=== PATIENT | male | born 1995 | race Caucasian/White ===

== ENCOUNTER 2025-07-28 11:07 | Emergency (ER) | payer OTHER, SELFPAY ==
[2025-07-28 11:30] VITALS: BP 140/78; PULSE 65; RESP 18; TEMP 36.2; O2SAT 99; BMI 28.2
--- NOTE | 2025-07-28 11:35 | ED_ITS ---
HPI - General Adult General Chief complaint: Skin/Abscess/Foreign Body Stated complaint: Rash Time Seen by Provider: 07/28/25 14:20 Source: patient Mode of arrival: ambulatory Limitations: no limitations History of Present Illness ED Provider: Patti Lamb PA-C HPI narrative: Patient is a Patient is a 30 year old male presenting to the emergency department with a rash. Patient states he was in [facility] on a trip and arrived back on 07/14/2025 when he developed a rash a few days after that has not improved despite him using benadryl. Patient states that the rash is not itchy at all. Patient states that he has not tried any new soaps or detergents. Patient denies any other symptoms including fever, chills, body aches, etc. Patient states that he is sexually active but has not been since returning from [facility]. Patient states that he is up to date on all of his vaccinations. Patient denies any other complaints at this time. Relieving factors: none Exacerbating factors: none Associated symptoms: rash Treatments prior to arrival: other (Benadryl OTC - no improvement) Related Data Previous Rx's ?Medication ?Instructions ?Recorded prednisone 20 mg tablet See Rx Instructions .Route 1 09/28/24 .COMPLEX 9 days #18 tabs Allergies Allergy/AdvReac Type Severity Reaction Status Date / Time No Known Allergies Allergy Verified 07/28/25 11:34 Review of Systems 2 Constitutional: Constitutional: Reports as per HPI Eyes: Eyes: Reports as per HPI ENT: Reports as per HPI Cardiovascular: Cardiovascular: Reports as per HPI Respiratory: Respiratory: Reports as per HPI Gastrointestinal: Gastrointestinal: Reports as per HPI Genitourinary: Genitourinary: Reports as per HPI Musculoskeletal: Musculoskeletal: Reports as per HPI Integumentary/Breasts: Skin/Breast: Reports as per HPI Neurologic: Reports as per HPI Psychiatric: Psychiatric: Reports as per HPI Endocrine: Endocrine: Reports as per HPI Hematologic/Lymphatic: Hematologic/Lymphatic: Reports as per HPI Allergic/Immunologic: Allergic/Immunologic: Reports as per HPI [facility] Past Medical History Attestation statement: The following information was validated with the patient. Source: old records reviewed and nursing notes reviewed Social History Social History Advance Directives: No Advance Directives Information Provided: Yes Do you have a plan to hurt others: No Plan Physical Exam ED Vital Signs: Vital Signs - 24 hr 07/28/25 11:30 07/28/25 14:31 Temperature 97.2 F 97.2 F Pulse Rate 65 65 Respiratory Rate 18 18 Blood Pressure 140/78 H 140/78 H Pulse Oximetry 99 99 Oxygen Delivery Method Room Air Room Air BMI result Body Mass Index 28.2 Const General: cooperative, alert and awake Orientation/consciousness: patient oriented x3 HENMT Head: Yes normal to inspection and Yes atraumatic Ears: hearing grossly normal bilaterally and external ears normal General nose exam: Normal external nose present, no nasal discharge noted and no epistaxis Face and sinus: Yes normal facial exam, No abrasion and No laceration Mouth: Normal oral and palatal mucosa present, no drooling and no muffled voice Eyes General: appearance normal, both eyes and all related structures Periorbital: periorbital findings normal Eyelids: Yes eyelids normal Conjunctivae: conjunctivae normal Pupils: Equal, round and reactive pupils present EOM: EOMs intact bilaterally Resp Effort & Inspection: normal respiratory effort and able to speak in complete sentences Skin Other: Neuro General: patient oriented x3, moves all extremities and CN's II-XI intact bilaterally Cranial nerves: Yes Equal, round and reactive pupils present Cognition (Neuro): normal cognition Extrem General: Yes full ROM Psych Appearance: grossly normal Mental Status: mental status grossly normal Attitude: cooperative Course Course Course Narrative: Rapid medical examination performed in triage by Patti Lamb PA-C: Patient is a 30 year old male presenting to the emergency department with a rash. Patient states he was in [facility] on a trip and arrived back on 07/14/2025 when he developed a rash a few days after that has not improved despite him using benadryl. Detailed physical exam and review of systems are deferred to the log hauler.Labs ordered. Patient placed back in the waiting room pending room availability and results. Medical Decision Making Medical Decision Making MDM Narrative: Patient is a Patient is a 30 year old male presenting to the emergency department with a rash. Patient's physical exam was as noted in the physical exam portion of this note. Patient's blood work showed some LFT elevation which I suspect is a passive response to this rash. Patient's tick borne panel / lyme testing / and syphillis are pending at this time. Given the patient is unbothered by this rash, has no systemic symptoms, it is not itchy, he was recently in a warm climate, and it started in his skin folds - I am suspicious this rash is intertrigo. I explained my physical exam findings as well as all test results to the patient. I answered all questions asked by the patient. Patient prescribed a burst and taper of prednisone and counseled on thoroughly washing / sanitizing his surroundings as well as his crucial need to see a family educator and follow up on his slightly elevated LFTs. I stressed the importance of the patient taking his medication as directed (either prescribed or as the over the counter packaging recommends). I stressed the importance of the patient following up with his primary care provider and family educator. I stressed the importance of the patient returning to the emergency department immediately if his symptoms were to worsen or if he were to develop any dizziness, shortness of breath, difficulty breathing, chest pain, blurry vision, loss of vision, nausea, vomiting, abdominal pain, fever, chills, back pain, or any other complaints. Patient verbalized agreement and understanding with this treatment plan and discharge. Differential Diagnosis Differential Diagnoses: The differential diagnosis associated with the presentation includes Rash Contact dermatitis Intertrigo Admission/Observation Consideration of admission/observation: Escalation of care including admission/observation considered Patient would have been admitted to the hospital had his work up had any findings where hospital admission was appropriate and his clinical presentation warranted hospital admission. Lab Data [facility] Lab Attestation statement: I reviewed the patient's lab results. My interpretation of these results are in the [facility] Rationale portion of this note. 07/28/25 12:43 07/28/25 12:43 Labs: Lab Results 07/28/25 Range/Units 12:43 WBC 8.4 (4.8-10.8) X10*3/uL RBC 4.81 (4.60-5.80) X10*6/uL Hgb 15.6 (14.0-18.0) g/dl Hct 45.1 (42.0-52.0) % MCV 93.8 (80.0-98.0) fL MCH 32.4 (27.0-33.0) pg MCHC 34.6 (31.0-36.0) g/dl RDW 11.4 (11.0-16.0) % Plt Count 253 (160-400) X10*3/uL MPV 11.0 (9.4-12.4) fL Immature Gran % (Auto) 0.4 (0.0-0.4) % Neut % (Auto) 69.3 (45-73) % Lymph % (Auto) 20.5 (20-40) % [place] % (Auto) 5.5 (2-11) % Eos % (Auto) 3.7 (0-4) % Baso % (Auto) 0.6 (0-2) % Lymph # (Auto) 1.7 (1.2-4.9) X10*3/uL [place] # (Auto) 0.5 (0.1-1.2) X10*3/uL Eos # (Auto) 0.3 (0.0-0.4) X10*3/uL Baso # (Auto) 0.1 (0.0-0.2) X10*3/uL Abs Immat Gran (auto) 0.03 (0.00-0.03) X10*3/uL Absolute Neuts (auto) 5.8 (2.0-8.3) x10*3/uL Absolute Nucleated RBC 0.000 (0.0-0.012) X10*3/uL Nucleated RBC % (auto) 0.0 (0.0-0.2) /100WBC ESR 6 (1-15) MM/HR Sodium 140 (135-145) mmol/L Potassium 4.0 (3.3-5.1) mmol/L Chloride 106 (96-108) mmol/L Carbon Dioxide 25 (22-29) mmol/L Anion Gap 13 (12-20) BUN 12 (9-16) mg/dL Creatinine 0.86 (0.5-1.4) mg/dL Estim Creat Clear Calc 141.1 Estimated GFR > 60 Random Glucose 87 (60-115) mg/dL Calcium 9.3 (8.4-10.2) mg/dL Magnesium 2.0 (1.6-2.6) mg/dL Total Bilirubin 0.7 (0.0-1.0) mg/dL AST 124 H (5-37) U/L ALT 101 H (0-40) U/L Alkaline Phosphatase 82 (39-117) U/L C-Reactive Protein 0.48 (< or = 0.50) mg/dL Total Protein 7.6 (6.5-8.0) g/dL Albumin 4.8 (3.5-5.0) g/dL Discharge Plan Discharge Clinical Impression: Rash Patient Disposition: Home, Self-Care Instructions: Acute Rash (ED) Additional Instructions: Your work up today was reassuring. I am suspicious that your rash is what we call Intertrigo. Your liver function tests were just slightly elevated - this is likely a passive reaction however, it is important you get them repeated / rechecked. Your Syphilis and tick borne illness testing is pending - we will call you if these results are POSITIVE. My suspicion for these things being positive is low. Take your corticosteroid as prescribed and follow up with a family educator. Be sure to thoroughly wash all clothing + bedding. The prednisone can make you agitated, hungry, and make sleeping difficult (these are normal side effects). [facility] today [address] IF you are prescribed home medications and/or you are taking over the counter medications at home - it is very important you continue to do so as prescribed / directed unless told otherwise by a healthcare provider. Follow up with your primary care provider. Do your best to stay well hydrated and rest. Return to the emergency department immediately if your symptoms worsen or if you develop any numbness, tingling, dizziness, shortness of breath, difficulty breathing, chest pain, blurry vision, loss of vision, nausea, vomiting, abdominal pain, fever, chills, back pain, or any other complaints. L If you do not have a primary care provider - call any of the below numbers to establish and follow up with a primary care provider. [facility] ([place]) [phone] [place] [address], [address] [facility] ([address] [place]) [phone] [address] [facility], [address] [facility], [address] [facility] ([address] [place]) [phone] [address] [facility], [address] [facility], [address] [facility] ([place]) [phone] [place] [address] [address] [facility], [address] [facility] [phone] [place] [address], [address] Please see the information below about our Patient Portal. If you are not yet enrolled in the [facility] Patient Portal, you will receive an enrollment email invitation following your visit to any [facility] setting. You may also self-enroll in the Patient Portal by visiting our website: [email or web address] The following information is required to access the Patient Portal: - Your [facility] Medical Record Number - Your personal home email address (must match what is in your electronic medical record, Registration staff can assist with this) - Name - Date of Capabilities of the Patient Portal: - Message some providers - View upcoming appointments - Access your health summary, medical history, and visit history - View current conditions and allergies - View procedure and lab results - View your medications, including guidelines, side effects, and precautions - Complete pre-appointment questionnaires requested by your provider - Ready summary reports of your office visits and procedures To access the Patient Portal Mobile Jessica, follow these directions: - Search Todaytickets in the Jessica Store or [employer] - [facility] - Download the Jessica - Search for [facility] - Enter your login/password Prescriptions: New prednisone 20 mg tablet See Rx Instructions .ROUTE .COMPLEX 9 Days Qty: 18 0RF Rx Instructions: 20 mg orally, Take 3 tablets for 3 days THEN; Take 2 tablets for 3 days THEN; Take 1 tablet for 3 days Stand Alone Forms: Work/School Release Interventions: ED Discharge Assessment Last Done: 07/28/25 14:31 Discharge Date/Time: 07/28/25 14:45 Print Language: Bulgarian
[2025-07-28 12:50] LABS: Hematocrit 45.1 % (42.0-52.0); Hemoglobin 15.6 g/dl (14.0-18.0); Imm Gran Abs Auto 0.03 X10*3/uL (0.00-0.03); Imm Gran Pct Auto 0.4 % (0.0-0.4); Lymphocytes Absolute Auto 1.7 X10*3/uL (1.2-4.9); MANUAL DIFF FLAG NO; Mean Corpuscular HGB Conc 34.6 g/dl (31.0-36.0); Mean Corpuscular Hemoglobin 32.4 pg (27.0-33.0); Mean Corpuscular Volume 93.8 fL (80.0-98.0); NRBC Abs Auto 0.000 X10*3/uL (0.0-0.012); NRBC Pct Auto 0.0 /100WBC (0.0-0.2); Platelet Count 253 X10*3/uL (160-400); Red Blood Count 4.81 X10*6/uL (4.60-5.80); White Blood Count 8.4 X10*3/uL (4.8-10.8)
[2025-07-28 13:06] LABS: Alanine Aminotransferase 101 U/L (0-40); Albumin Level 4.8 g/dL (3.5-5.0); Alkaline Phosphatase 82 U/L (39-117); Anion Gap 13 (12-20); Aspartate Amino Transferase 124 U/L (5-37); Blood Urea Nitrogen 12 mg/dL (9-16); Calcium 9.3 mg/dL (8.4-10.2); Carbon Dioxide 25 mmol/L (22-29); Chloride 106 mmol/L (96-108); Creatinine Clr Calc Pharmacy 141.1; Estimated Glomerular Filt Rate > 60; Magnesium 2.0 mg/dL (1.6-2.6); Potassium 4.0 mmol/L (3.3-5.1); Sodium 140 mmol/L (135-145); Total Protein 7.6 g/dL (6.5-8.0)
[2025-07-28 14:31] VITALS: BP 140/78; PULSE 65; RESP 18; TEMP 36.2; O2SAT 99
[2025-07-29 03:41] LABS: Syphilis Screen Nonreactive (Nonreactive)
[2025-07-30 08:42] LABS: Lyme Abs Screen <0.90 index
[2025-07-30 16:54] LABS: A. Phagocytphilium DNA,RT-PCR NOT DETECTED (NOT DETECTED); Babesia Microti DNA, RT-PCR NOT DETECTED (NOT DETECTED); Borrelia Miyamotoi,DNA RT-PCR NOT DETECTED (NOT DETECTED); E.Chaffeensis DNA RT-PCR NOT DETECTED (NOT DETECTED); Lyme(Borrelia ssp)DNA RT-PCR NOT DETECTED (NOT DETECTED)
== END 2025-07-28 14:45 | disposition home or self-care (01) ==
LOC: HO.ED 14:36
PROVIDERS: Physician Assistant Medical; Emergency Provider Emergency Medicine
DX: R21 Rash and other nonspecific skin eruption (principal)
CPT/HCPCS: 36415; 80053; 83735; 85025; 85652; 86140; 86617; 86618; 86780; 87468; 87469; 87478; 87484; 87798; 99282; 99283